=== PATIENT | male | born 1955 | race Native Hawaiian/Other Pacific Islander ===

== ENCOUNTER 2017-08-03 09:00 | Outpatient (CLI) | payer OTHER | END 2017-08-03 19:59 | disposition home or self-care (01) | LOC: RAD 09:00 | DX: R06.09 Other forms of dyspnea (principal); E66.01 Morbid (severe) obesity due to excess calories ==

== ENCOUNTER 2018-10-19 01:06 | Emergency (ER) | payer OTHER ==
[~2018-10-19] VITALS: Ht 177.8 cm; Wt 117.9 kg
[2018-10-19] MEDS ORDERED: PROSCAR5 MG PO (01:23)
[2018-10-19] MEDS ORDERED: SIMV20TA2 PO (01:23)
[2018-10-19] MEDS ORDERED: METOPROLOL25 M1 PO (01:23)
[2018-10-19 01:56] LABS: PLATELET COUNT 324 K/uL (142-355)
[2018-10-19 02:32] LABS: POTASSIUM 4.8 mmol/L (3.6-5.2)
[2018-10-19 03:35] VITALS: BP 181/84; TEMP 98.1
== END 2018-10-19 03:35 | disposition home or self-care (01) ==
LOC: ED 01:06
PROVIDERS: Internal Medicine
DX: N13.2 Hydronephrosis with renal and ureteral calculous obstruction (principal)
CPT/HCPCS: 36415; 80053; 81000; 85027; 96375; 96376; 99284; J1885; J2270; J2405

== ENCOUNTER 2018-10-21 00:11 | Emergency (ER) | payer OTHER ==
[~2018-10-21] VITALS: Ht 177.8 cm; Wt 117.9 kg
[~2018-10-21 00:11] MED LIST: METOPROLOL25 M1 PO; PROSCAR5 MG PO; SIMV20TA2 PO
[2018-10-21 00:20] VITALS: TEMP 98.2
[2018-10-21] MEDS ORDERED: TAMS0.4C PO (00:32)
[2018-10-21] MEDS ORDERED: TIZA4TAB5 PO (00:33)
[2018-10-21] MEDS ORDERED: HYDROCHLOROT12.5 M1 PO (00:34)
[2018-10-21] MEDS ORDERED: MULTIVITAMI1 PO (00:34)
[2018-10-21] MEDS ORDERED: MELOXICAM7.5 MG PO (00:34)
[2018-10-21] MEDS ORDERED: ACTOS15 MG PO (00:35)
[2018-10-21] MEDS ORDERED: KETO10TA34 PO (00:35)
[2018-10-21] MEDS ORDERED: VENL37.511 PO (00:35)
[2018-10-21] MEDS ORDERED: PERCOCET1 TA3 PO (00:36)
[2018-10-21 01:25] VITALS: BP 158/71
== END 2018-10-21 01:36 | disposition home or self-care (01) ==
LOC: ED 00:11
DX: N20.0 Calculus of kidney (principal); R11.2 Nausea with vomiting, unspecified; R10.84 Generalized abdominal pain
CPT/HCPCS: 96372; 99283; J2270; J2405

== ENCOUNTER 2018-11-07 09:51 | Outpatient (CLI) | payer OTHER ==
[~2018-11-07 09:51] MED LIST changes: +ACTOS15 MG PO; +HYDROCHLOROT12.5 M1 PO; +KETO10TA34 PO; +MELOXICAM7.5 MG PO; +MULTIVITAMI1 PO; +PERCOCET1 TA3 PO; +TAMS0.4C PO; +TIZA4TAB5 PO; +VENL37.511 PO
== END 2018-11-07 19:36 | disposition home or self-care (01) ==
LOC: CT 09:51
DX: Z87.09 Personal history of other diseases of the respiratory system (principal); R06.09 Other forms of dyspnea; J44.9 Chronic obstructive pulmonary disease, unspecified

== ENCOUNTER 2018-12-13 02:25 | Emergency (ER) | payer OTHER ==
[~2018-12-13] VITALS: Ht 177.8 cm; Wt 117.9 kg
[2018-12-13 03:21] LABS: PLATELET COUNT 324 K/uL (142-355)
[2018-12-13 03:36] LABS: POTASSIUM 4.8 mmol/L (3.6-5.2)
[2018-12-13 05:10] VITALS: BP 154/79; TEMP 97.7
== END 2018-12-13 05:10 | disposition home or self-care (01) ==
LOC: ED 02:25
PROVIDERS: Emergency Medicine
DX: N13.2 Hydronephrosis with renal and ureteral calculous obstruction (principal)
CPT/HCPCS: 36415; 80053; 81000; 85027; 96365; 96374; 96375; 99284; J1885; J2405

== ENCOUNTER 2019-10-07 15:41 | Emergency (ER) | payer OTHER ==
[~2019-10-07] VITALS: Ht 177.8 cm; Wt 117.9 kg
[2019-10-07 15:53] VITALS: TEMP 97.5
[2019-10-07 18:03] VITALS: BP 188/81
== END 2019-10-07 18:03 | disposition home or self-care (01) ==
LOC: ED 15:41
PROC: 0HQGXZZ Repair Left Hand Skin, External Approach (ICD-10-PCS; principal; 2019-10-07)
PROC: 2W3KX1Z Immobilization of Left Finger using Splint (ICD-10-PCS; 2019-10-07)
DX: S62.661B Nondisplaced fracture of distal phalanx of left index finger, initial encounter for open fracture (principal); W31.89XA Contact with other specified machinery, initial encounter; Y92.89 Other specified places as the place of occurrence of the external cause
CPT/HCPCS: 90471; 90715; 96372; 99283; J0696; J2001

== ENCOUNTER 2019-10-08 16:47 | Emergency (ER) | payer OTHER ==
[~2019-10-08] VITALS: Ht 177.8 cm; Wt 117.9 kg
[2019-10-08 17:36] VITALS: BP 174/86; TEMP 98.8
== END 2019-10-08 17:40 | disposition home or self-care (01) ==
LOC: ED 16:47
DX: S61.211A Laceration without foreign body of left index finger without damage to nail, initial encounter (principal); Z48.01 Encounter for change or removal of surgical wound dressing